=== PATIENT | male | born 1935 | race Caucasian/White ===

== ENCOUNTER → 2025-05-22 10:32 | Outpatient (REF) | payer OTHER, SELFPAY | LOC: RAD 10:32 | PROVIDERS: ATTENDING PHYSICIAN Nurse Practitioner Acute Care; FAMILY PHYSICIAN Family Medicine | DX: I35.0 Nonrheumatic aortic (valve) stenosis (principal) | CPT/HCPCS: 74174; 75572; Q9967 ==

== ENCOUNTER 2025-06-02 08:57 | Day surgery (SDC) | payer OTHER, SELFPAY ==
[2025-06-02] VITALS (11 sets, daily range): BP systolic 134–186; BP diastolic 61–93; BMI 31.5
[2025-06-02 09:26] LABS: Hematocrit 38.0 % (39.0-52.0); Hemoglobin 12.6 g/dL (13.0-18.0); Mean Corp Hgb Conc. 33.2 g/dL (33.0-37.0); Mean Corpuscular Volume 82.1 fL (80.0-94.0); Platelet Count 173 10^3/uL (130-400); Red Cell Dist. Width 14.4 % (11.5-14.5)
[2025-06-02 09:42] LABS: ALT (SGPT) 16 U/L (0-50); AST (SGOT) 20 U/L (17-59); Albumin 4.5 g/dl (3.5-5.0); Alkaline Phosphatase 51 U/L (38-126); Blood Urea Nitrogen 19 mg/dl (9-20); Calcium 9.2 mg/dl (8.4-10.2); Carbon Dioxide 27 mmol/L (22-30); Chloride 101 mmol/L (98-107); Estimated Creatinine Clearance 49 ml/min; Glucose 86 mg/dl (70-99); Potassium 3.9 mmol/L (3.5-5.1); Sodium 136 mmol/L (135-145); Total Protein 7.9 g/dl (6.3-8.2); eGFR > 60.00
[2025-06-02] MEDS: NSS 1000 IV (16:01)
--- NOTE | 2025-06-02 16:23 | ITS.CL.PN ---
[facility] - Procedure Note
Procedure
Procedure Note:
CARDIAC CATHETERIZATION REPORT
Date of Procedure: 06/02/2025
Referring: Dr. Nelson Kapadia MD
Indication: Symptomatic severe aortic valve stenosis
PROCEDURE(S)
1. right heart catheterization
2. coronary angiography
ACCESS
1. 6F right radial artery (note: 70 cm sheath used given severe subclavian tortuosity, recommend groin access in future; closure: radial band)
2. 6F right femoral vein (note: right subclavian vein is stenotic; closure: manual hemostasis)
CATHETERS
1. 5F [place]
2. 6F JR5
3. 6F JL4
MODERATE SEDATION: 35 minutes of moderate sedation was utilized. An independent medical psychotherapist was present to assist with and help manage the patient's level of consciousness and physiologic status.
HEMODYNAMIC DATA
AO 178/79 (mean 120) mmHg
RA 14 mmHg
RV 43/11 (EDP 17) mmHg
PA 44/23 (mean 31) mmHg
PCWP 19 mmHg
SaO2 95.0%
SvO2 68.9%
Hb 11.7 g/dL
CO/CI 6.09/3.01 L/min/m2
SVR 1392 dsc*-5
PVR 2.0 Wood units
CORONARY ANGIOGRAPHY
Dominance: Right
LM: Large, normal
LAD: Large vessel giving rise to multiple small diagonal branches. There is a focal 60-70% calcified stenosis in the proximal LAD. The stent in the mid LAD is widely patent.
LCx: Large vessel giving rise to a small OM1, small OM2, moderate caliber OM3, large LPL1, small LPL2, and small LPDA. There is a moderate up to 40% stenosis in the mid circumflex after the OM3. There is diffuse severe disease in the proximal aspect
of the OM3.
RCA: Moderate caliber likely nondominant vessel totally subtotally occluded proximally.
RADIATION: dose 675 mGy; DAP 76.6 Gy*cm2; fluoroscopy time 18.8 min
CONCLUSIONS
1. Coronary artery disease as described in a right dominant system
2. Mildly elevated biventricular filling pressures and mild pulmonary hypertension
RECOMMENDATIONS
1. Aggressive secondary prevention of coronary artery disease. Symptoms of RAMAN unlikely to be due to CAD, more likely due to severe . If patient has residual symptoms after TAVR, could consider vascularization of the proximal LAD after
demonstration of flow limitation (by stress test or iFR) in the LAD territory.
2. Proceed with workup for TAVR
3. Pleural effusion noted on TAVR CT scan and has been chronic for several years. In setting of significant venous collateralization due to compression from the goiter, one possible etiology of pleural effusion may be increased venous hydrostatic
pressure. Consider outpatient appointment with pulmonary (referral given to patient).
Copy to: Dr. Nelson Kapadia MD (campaign marketing specialist); Dr. Katelyn Rose DO (PCP)
Signed: Jed Keller MD, PhD
== END 2025-06-02 17:20 | disposition home or self-care (01) ==
LOC: CATH 08:57
PROVIDERS: ATTENDING PHYSICIAN Student in an Organized Health Care Education/Training Program; FAMILY PHYSICIAN Family Medicine; OTHER PHYSICIAN Internal Medicine Cardiovascular Disease
DX: I35.0 Nonrheumatic aortic (valve) stenosis (principal); I25.10 Atherosclerotic heart disease of native coronary artery without angina pectoris; I27.20 Pulmonary hypertension, unspecified; J90 Pleural effusion, not elsewhere classified; Z79.01 Long term (current) use of anticoagulants; Z79.890 Hormone replacement therapy; Z79.899 Other long term (current) drug therapy
CPT/HCPCS: 99153; 99152; 80053; 85027; 93456; 93460; C1769; C1894; Q9967